=== PATIENT | female | born 1960 | race Native Hawaiian/Other Pacific Islander ===

== ENCOUNTER 2016-09-02 12:31 | Emergency (ER) | payer OTHER ==
[~2016-09-02] VITALS: Ht 162.6 cm; Wt 74.8 kg
[~2016-09-02 12:31] MED LIST: ACET7.5T70 PO; ALPR1TAB61 PO; CELEXA PO
== END 2016-09-02 13:50 | disposition home or self-care (01) ==
LOC: ED 12:31
DX: S39.012A Strain of muscle, fascia and tendon of lower back, initial encounter (principal); M54.5 Low back pain; X50.0XXA Overexertion from strenuous movement or load, initial encounter
CPT/HCPCS: 99282

== ENCOUNTER → 2017-09-02 15:37 | Outpatient (CLI) | payer OTHER | END | disposition home or self-care (01) | LOC: AMB 15:37 | DX: M25.512 Pain in left shoulder (principal) ==